=== PATIENT | male | born 1995 | race Caucasian/White ===

== ENCOUNTER 2017-01-21 12:58 | Emergency (ER) | payer SELFPAY ==
[2017-01-21 13:36] VITALS: BP 114/59
[2017-01-21] MEDS ORDERED: PRED20TA PO (13:56)
[2017-01-21] MEDS ORDERED: methylPREDNISolone SOD SUCC PF 125 MG/2 ML VIAL. IM ONE (14:00)
--- NOTE | 2017-01-21 14:04 | PHYS DOC ---
Past Medical History Past Medical History: No Pertinent History Past Surgical History: Tonsillectomy Alcohol Use: Heavy Additional Information: DAILY Drug Use: None Adult General Chief Complaint Chief Complaint: SKIN RASH/ABSCESS HPI HPI Patient is a 22 year old male presents emergency department stating that he has poison olaf. Patient states that he was pulling weeds in getting the amount of his family's members yard. He states this occurred last Saturday he has been having redness irritation that started on his legs and is moved to his arms. He has used Benadryl [id number] as well as calamine lotion with no relief. He denies any fever, chills or any nausea vomiting. He denies any wheezing or shortness of air. Review of Systems Review of Systems Constitutional: Denies fever or chills [] Eyes: Denies change in visual acuity, redness, or eye pain [] HENT: Denies nasal congestion or sore throat [] Respiratory: Denies cough or shortness of breath [] Cardiovascular: No additional information not addressed in HPI [] GI: Denies abdominal pain, nausea, vomiting, bloody stools or diarrhea [] : Denies dysuria or hematuria [] Musculoskeletal: Denies back pain or joint pain [] Integument: rash denies skin lesions [] Neurologic: Denies headache, focal weakness or sensory changes [] Endocrine: Denies polyuria or polydipsia [] Current Medications Current Medications Current Medications Medications (Trade) Dose Ordered Sig/Rosa Start Time Stop Time Status Last Admin Dose Admin Methylprednisolone Sodium Succinate (SOLU-Medrol 125MG VIAL) 125 mg 1X ONCE 01/21/17 14:00 01/21/17 14:01 UNV Physical Exam Physical Exam Constitutional: Well developed, well nourished, no acute distress, non-toxic appearance. [] HENT: Normocephalic, atraumatic, bilateral external ears normal, oropharynx moist, no oral exudates, nose normal. [] Eyes: PERRLA, EOMI, conjunctiva normal, no discharge. [] Neck: Normal range of motion, no tenderness, supple, no stridor. [] Cardiovascular:Heart rate regular rhythm, no murmur [] Lungs & Thorax: Bilateral breath sounds clear to auscultation [] Skin: Warm, dry, no erythema. Shunt noted to have rash on his arms and legs. Nares appear to be slightly scabbed over with some areas being pustular type. No drainage or discharge noted from the sites. Back: No tenderness Extremities: No tenderness, no cyanosis, no clubbing, ROM intact, no edema. [] Neurologic: Alert and oriented X 3, normal motor function, normal sensory function, no focal deficits noted. [] Psychologic: Affect normal, judgement normal, mood normal. [] Current Patient Data Vital Signs Vital Signs Date Time Temp Pulse Resp B/P (MAP) Pulse Ox O2 Delivery O2 Flow Rate FiO2 01/21/17 13:36 98.2 70 18 100 Room Air 98.2 EKG EKG [] Radiology/Procedures Radiology/Procedures [] Course & Med Decision Making Course & Med Decision Making Pertinent Labs and Imaging studies reviewed. (See chart for details) Patient was instructed to use Benadryl 25 mg every 6 hours to help with itching and irritation. He was instructed this medication will cause drowsiness do not take any be alert and oriented. Patient was also instructed to use prednisone as prescribed. Also recommended keeping the area clean dry and cool. Continue with calamine lotion to help with drying up the area. Patient was instructed to follow-up with primary care physician next 7-10 days. Patient was provided with signs and symptoms to return back to emergency department. Patient agrees with discharge instructions treatment regimens and follow-up recommendations. [] Dragon Disclaimer Dragon Disclaimer This electronic medical record was generated, in whole or in part, using a voice recognition dictation system. Departure Departure Impression: Primary Impression: Contact dermatitis Disposition: HOME, SELF-CARE Condition: STABLE Referrals: NO PCP (PCP) Patient Instructions: Contact Dermatitis, [id number] Additional Instructions: Activity as tolerated. Medication as prescribed. Benadryl 25 mg every 6 hours as needed for itching and irritation. This medication will cause drowsiness do not take any be alert and oriented. Calamine lotion may also help soothe the skin. Keep the area clean dry and cool. Follow-up to primary care physician in the next 5-7 days. Return back to emergency prior signs symptoms become worse. Scripts Prednisone (PREDNISONE) 20 Mg Tablet 40 MG PO DAILY, #14 TAB Prov: KAVITHA HOFFMAN APRN 01/21/17 KAVITHA HOFFMAN APRN January 21, 2017 14:04
== END 2017-01-21 14:20 | disposition home or self-care (01) ==
LOC: ER 13:21
DX: L25.9 Unspecified contact dermatitis, unspecified cause (principal)
CPT/HCPCS: 96372; 99283; J2930

== ENCOUNTER 2017-05-20 17:04 | Emergency (ER) | payer OTHER ==
[~2017-05-20] VITALS: Ht 180.3 cm; Wt 95.3 kg
[~2017-05-20 17:04] MED LIST: PRED20TA PO
[2017-05-20] MEDS ORDERED: IV NORMAL SALINE 1000ML BAG 1,000 ML IV ONE (17:30)
[2017-05-20] MEDS ORDERED: ONDANSETRON PF 4 MG/2 ML VIAL. IV ONE ×2 (17:30→19:30)
[2017-05-20] MEDS ORDERED: IOHEXOL 300 MG/ML 75 ML VIAL IV ONE (18:00)
[2017-05-20 18:10] LABS: BASO % 1 % (0-3); EOS % 4 % (0-3); HEMATOCRIT 41.4 % (39.0-53.0); HEMOGLOBIN 14.2 g/dL (13.0-17.5); LYMPH % 46 % (24-48); MEAN CORPUSCULAR HEMOGLOBIN 31 pg (25-35); MEAN CORPUSCULAR HGB CONC 34 g/dL (31-37); MEAN CORPUSCULAR VOLUME 91 fL (79-100); MONO % 9 % (0-9); NEUT % 42 % (31-73); PLATELET COUNT 151 x10^3/uL (140-400); RED BLOOD COUNT 4.57 x10^6/uL (4.30-5.70); RED CELL DISTRIBUTION WIDTH 12.7 % (11.5-14.5); WHITE BLOOD COUNT 6.7 x10^3/uL (4.0-11.0)
[2017-05-20] MEDS ORDERED: CONTRAST GIVEN MC PRN (18:15)
[2017-05-20 18:26] LABS: CALCIUM 8.5 mg/dL (8.5-10.1); GFR 94.3; POTASSIUM 3.8 mmol/L (3.5-5.1)
[2017-05-20 18:32] LABS: ALBUMIN/GLOBULIN RATIO 1.6 (1.0-1.7); TOTAL BILIRUBIN 0.2 mg/dL (0.2-1.0); TOTAL PROTEIN 6.5 g/dL (6.4-8.2)
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
--- NOTE | 2017-05-20 18:56 | RAD ---
CT scan of the abdomen and pelvis with contrast 05/20/2017 CLINICAL HISTORY: Right upper quadrant and epigastric pain for one month. TECHNIQUE: After the intravenous administration 75 cc of Omnipaque 300 only, contiguous, 5 mm axial sections were obtained through the abdomen and pelvis. One or more of the following individualized dose reduction techniques were utilized for this study: 1. Automated exposure control. 2. Adjustment of the mA and/or kV according to patient size. 3. Use of iterative reconstruction technique. FINDINGS: Images through the lung bases demonstrate minimal dependent subsegmental atelectasis bilaterally. The liver, spleen, pancreas, adrenal glands and kidneys are within normal limits. The abdominal aorta tapers normally. The gallbladder is contracted. No free fluid or free air is seen within the abdomen. There is no evidence of bowel obstruction. Air and stool is seen throughout the colon. The appendix is not visualized. No inflammatory changes are seen surrounding the cecum. Images through the pelvis demonstrate the urinary bladder distended with urine. Minimal S-shaped curvature of the thoracolumbar spine is seen. IMPRESSION: No acute abnormality is seen. Electronically signed by: Shorty Ram MD (05/20/2017 6:52 PM) [facility]
[2017-05-20 18:59] LABS: BILIRUBIN,URINE NEGATIVE (NEG); GLUCOSE,URINE NEGATIVE (NEG); NITRITE,URINE NEGATIVE (NEG); PH,URINE 6.5; PROTEIN,URINE NEGATIVE (NEG-TRACE); UROBILINOGEN,URINE 0.2 mg/dL (0.2 mg/dL)
[2017-05-20 19:13] LABS: BACTERIA,URINE 0 /HPF (0-FEW); RBC,URINE 0 /HPF (0-2); WBC,URINE 0 /HPF (0-4)
[2017-05-20 19:16] LABS: BARBITURATES NEG (NEG); BENZODIAZEPINES NEG (NEG); CANNABINOIDS POS (NEG); COCAINE NEG (NEG); METHADONE NEG (NEG); OPIATES NEG (NEG); PHENCYCLIDINE NEG (NEG)
[2017-05-20 19:51] VITALS: BP 103/59
[2017-05-20] MEDS ORDERED: ONDA4TAB10 PO (20:05)
[2017-05-20] MEDS ORDERED: OMEP20TA63 PO (20:05)
== END 2017-05-20 20:16 | disposition home or self-care (01) ==
LOC: ER 17:04
DX: R10.11 Right upper quadrant pain (principal); R30.0 Dysuria; F10.10 Alcohol abuse, uncomplicated; Z88.1 Allergy status to other antibiotic agents; Z88.2 Allergy status to sulfonamides
CPT/HCPCS: 36415; 74177; 80053; 80307; 81001; 83690; 85025; 96361; 96374; 96376; 99285; G0480; J2405; J7030; Q9967; G0479

== ENCOUNTER 2018-11-06 14:50 | Emergency (ER) | payer BC, OTHER ==
[~2018-11-06] VITALS: Ht 182.9 cm; Wt 79.4 kg
[~2018-11-06 14:50] MED LIST changes: +OMEP20TA63 PO; +ONDA4TAB10 PO
[2018-11-06 15:00] VITALS: BP 126/56
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
[2018-11-06] MEDS ORDERED: CLIN300C8 PO (15:51)
== END 2018-11-06 16:02 | disposition home or self-care (01) ==
LOC: ER 14:50
DX: K02.9 Dental caries, unspecified (principal); F10.20 Alcohol dependence, uncomplicated; Y90.9 Presence of alcohol in blood, level not specified; Z96.22 Myringotomy tube(s) status; Z90.89 Acquired absence of other organs; Z88.1 Allergy status to other antibiotic agents; Z88.2 Allergy status to sulfonamides
CPT/HCPCS: 99283

== ENCOUNTER 2021-04-05 18:40 | Emergency (ER) | payer BC ==
[~2021-04-05] VITALS: Ht 180.3 cm; Wt 100.0 kg
[~2021-04-05 18:40] MED LIST changes: +CLIN300C9 PO
[2021-04-05 21:15] VITALS: BP 119/58
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
[2021-04-06 03:37] LABS: BASO % 1 % (0-3); EOS # 0.4 x10^3/uL (0.0-0.7); EOS % 5 % (0-3); HEMATOCRIT 42.3 % (39.0-53.0); HEMOGLOBIN 14.6 g/dL (13.0-17.5); LYMPH # 3.5 x10^3/uL (1.0-4.8); LYMPH % 44 % (24-48); MEAN CORPUSCULAR HEMOGLOBIN 31 pg (25-35); MEAN CORPUSCULAR HGB CONC 34 g/dL (31-37); MEAN CORPUSCULAR VOLUME 89 fL (79-100); MONO # 0.7 x10^3/uL (0.0-1.1); MONO % 9 % (0-9); NEUT # 3.3 x10^3/uL (1.8-7.7); NEUT % 42 % (31-73); PLATELET COUNT 177 x10^3/uL (140-400); RED BLOOD COUNT 4.74 x10^6/uL (4.30-5.70); RED CELL DISTRIBUTION WIDTH 13.1 % (11.5-14.5)
[2021-04-06 03:49] LABS: CALCIUM 8.5 mg/dL (8.5-10.1); CREATININE 0.9 mg/dL (0.7-1.3); GFR 102.8; POTASSIUM 3.6 mmol/L (3.5-5.1)
--- NOTE | 2021-04-06 03:52 | RAD ---
EXAMINATION: Chest radiograph. VIEWS: Single view COMPARISON: None INDICATION:26 years, Male, edema. FINDINGS: Normal cardiomediastinal silhouette. No focal consolidation. No pleural effusion or pneumothorax. No acute osseous process. IMPRESSION: No acute cardiopulmonary process. Electronically signed by: Hortensia Guzman MD (04/06/2021 3:50 AM) [facility]
[2021-04-06 03:58] LABS: ALBUMIN 3.9 g/dL (3.4-5.0); ALBUMIN/GLOBULIN RATIO 1.2 (1.0-1.7); MAGNESIUM 2.1 mg/dL (1.8-2.4); PHOSPHORUS 3.4 mg/dL (2.6-4.7); TOTAL BILIRUBIN 0.6 mg/dL (0.2-1.0); TOTAL PROTEIN 7.1 g/dL (6.4-8.2)
--- NOTE | 2021-04-06 04:17 | RAD ---
EXAMINATION: US BILATERAL LOWEREXTREMITY VENOUS DOPPLER INDICATION: Bilateral lower extremity swelling, evaluate for deep venous thrombosis. COMPARISONS: None TECHNIQUE: Grayscale, color and spectral Doppler evaluation of the Bilateral lower extremity deep bg ous system(s) was performed. FINDINGS: Bilateral common femoral, femoral and popliteal veins are normally compressible and demonstrate rufina lly directed and appropriately phasic flow with augmentation. Normal flow is present within the saphenofemoral junctions and deep femoral veins in the proximal thi ghs and the posterior tibial and peroneal veins in the proximal calves. IMPRESSION: No deep venous thrombosis in both lower extremities. Electronically signed by: Hortensia Guzman MD (04/06/2021 4:14 AM) [facility]
--- NOTE | 2021-04-06 05:30 | EKG ---
[address] [place] [address] Test Date: 2021-04-06 Test Time: 03:33:37 Pat Name: SABAS LAND Department: Room: Gender: M Director Nicu: : 1995 Requested By: CHETNA FORD Order Number: [id number] Reading MD: Measurements Intervals [place] Rate: 61 P: 52 CT: 180 QRS: 64 QRSD: 92 T: 53 QT: 408 QTc: 412 Interpretive Statements SINUS RHYTHM NORMAL ECG RI6.02 No previous ECG available for comparison
[2021-04-06 05:34] LABS: BILIRUBIN,URINE SMALL (NEG); CLARITY,URINE CLEAR; NITRITE,URINE NEGATIVE (NEG); PH,URINE 5.5 (<5.0-8.0); PROTEIN,URINE NEGATIVE (NEG-TRACE)
[2021-04-06 05:43] LABS: BACTERIA,URINE FEW /HPF (0-FEW); COLOR,URINE YELLOW; RBC,URINE OCC /HPF (0-2)
== END 2021-04-06 06:00 | disposition home or self-care (01) ==
LOC: ER 18:40
DX: R60.0 Localized edema (principal); F17.200 Nicotine dependence, unspecified, uncomplicated; F10.20 Alcohol dependence, uncomplicated; Y90.9 Presence of alcohol in blood, level not specified; Z88.1 Allergy status to other antibiotic agents; Z88.2 Allergy status to sulfonamides
CPT/HCPCS: 36415; 71045; 80053; 81001; 83735; 83880; 84100; 84443; 84484; 85025; 87086; 93005; 93970; 99285-25